=== PATIENT | female | born 1940 | race Caucasian/White ===

== ENCOUNTER 2016-04-15 05:30 | Emergency (ER) | payer OTHER ==
[~2016-04-15] VITALS: Ht 160 cm; Wt 52.2 kg
--- NOTE | ~2016-04-15 | EKG ---
[address] [address] [place] [address] ELECTROCARDIOGRAM REPORT Name: JAEL VALENZUELA Room #: REG Romero#: [id number] Admission: 04/15/16 Attend Phys: Discharge: Date of : 38 Report #: [id number] THIS REPORT FOR: //name// [facility] ED Test Date: 2016-04-15 Test Time: 05:35:05 Pat Name: JAEL VALENZUELA Department: Room: Gender: F Galley Cook: MARK : 1940 Requested By: Yamilex Cintron Order Number: [id number] MD: Marin Gallo Measurements Intervals [place] Rate: 65 P: 41 IA: 155 QRS: 40 QRSD: 100 T: 44 QT: 405 QTc: 422 Interpretive Statements Sinus rhythm Borderline low voltage, extremity leads No previous ECG available for comparison Electronically Signed On 04-15-2016 9:01:54 SPACE AND STORAGE CLERK by Marin Gallo [email or web address] <ELECTRONICALLY SIGNED> By: Marin Gallo MD, [facility] 04/15/16 0901 0535 0535 Marin Gallo MD, FACC /EPI
--- NOTE | ~2016-04-15 | EKG ---
[address] [address] [place] [address] ELECTROCARDIOGRAM REPORT Name: JAEL VALENZUELA Room #: REG Romero#: [id number] Admission: 04/15/16 Attend Phys: Discharge: Date of : 38 Report #: [id number] THIS REPORT FOR: //name// [facility] ED Test Date: 2016-04-15 Test Time: 07:41:20 Pat Name: JAEL VALENZUELA Department: Room: Gender: F [employer]: [employer] READ : 1940 Requested By: Yamilex Cintron Order Number: [id number] MD: Marin Gallo Measurements Intervals [place] Rate: 70 P: 35 FL: 146 QRS: 27 QRSD: 104 T: 40 QT: 390 QTc: 421 Interpretive Statements Sinus rhythm Borderline low voltage, extremity leads No previous ECG available for comparison Electronically Signed On 04-15-2016 9:05:28 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
[2016-04-15] MEDS ORDERED: LEVOTHYROXIN0.025 MG PO (05:40)
[2016-04-15] MEDS ORDERED: ACIDOPHILUS1 EAC5 PO (05:40)
[2016-04-15] MEDS ORDERED: ASPIRIN81 M2 PO (05:40)
[2016-04-15] MEDS ORDERED: DOK100 MG PO (05:40)
[2016-04-15] MEDS ORDERED: FLEET ENEMA118 ML RC (05:41)
[2016-04-15] MEDS ORDERED: THEREMS-M1 EACH PO (05:43)
[2016-04-15] MEDS ORDERED: ZOLOFT25 MG PO (05:43)
[2016-04-15] MEDS ORDERED: IMDUR 30 MG TAB30 M1 PO (05:43)
[2016-04-15] MEDS ORDERED: OMEGA-31000 M1 PO (05:44)
[2016-04-15] MEDS ORDERED: ASMANEX220 MC2 INH (05:44)
[2016-04-15] MEDS ORDERED: DONEPEZIL HCL 55 M1 PO (05:45)
[2016-04-15] MEDS ORDERED: NORTRIPTYLINE H10 M2 PO (05:45)
[2016-04-15] MEDS ORDERED: NORCO 5-325 TA1 EACH PO (05:46)
[2016-04-15] MEDS ORDERED: DULCOLAX5 MG PO (05:46)
[2016-04-15] MEDS ORDERED: NITROGLYCERIN0.4 MG SUBLING (05:48)
[2016-04-15] MEDS ORDERED: MSL20MG/ML SUBLING (05:48)
[2016-04-15] MEDS ORDERED: ZOFRAN ODT4 M1 PO (05:48)
[2016-04-15] MEDS ORDERED: MEDI PADS1 EACH TP (05:49)
[2016-04-15 06:28] LABS: ABSOLUTE NEUTROPHILS 3.3 thou/uL (1.4-8.2); BASOPHILS 1.3 % (0.0-2.0); EOSINOPHILS 3.3 % (0.0-3.0); HEMATOCRIT 42.1 % (37.0-47.0); HEMOGLOBIN 14.6 gm/dL (12.0-15.0); LYMPHOCYTES 23.6 % (24.0-44.0); MCHC 34.7 % (28.0-37.0); MCV 92.3 fL (80.0-100.0); MONOCYTES 10.5 % (1.0-8.0); PLATELET COUNT 250 thou/uL (150-400); POLYS 61.3 % (36.0-66.0); RBC 4.56 mil/uL (4.20-5.00); RDW 15.2 % (10.5-14.5); WBC 5.5 thou/uL (4.0-11.0)
[2016-04-15 06:30] LABS: MANUAL DIFF NO
[2016-04-15 06:31] LABS: ANION GAP 10 mmol/L (7-16); BUN 12 mg/dL (7-18); CALCIUM 9.6 mg/dL (8.5-10.1); CHLORIDE 100 mmol/L (98-107); CO2 27 mmol/L (21-32); CREATININE 0.8 mg/dL (0.6-1.3); GLUCOSE 84 mg/dL (70-99); POTASSIUM 3.8 mmol/L (3.5-5.1); SODIUM 137 mmol/L (136-145)
[2016-04-15 06:40] LABS: TROPONIN-I < 0.04 ng/mL (<0.04-0.07)
[2016-04-15] MEDS ORDERED: HYDROCODONE-AP1 EAC6 PO (08:33)
[2016-04-15 10:02] VITALS: BP 123/69
== END 2016-04-15 10:03 ==
LOC: ER 05:30
PROVIDERS: Emergency Medicine
DX: R07.89 Other chest pain (principal); M54.30 Sciatica, unspecified side; F03.90 Unspecified dementia, unspecified severity, without behavioral disturbance, psychotic disturbance, mood disturbance, and anxiety; Z88.1 Allergy status to other antibiotic agents; Z88.8 Allergy status to other drugs, medicaments and biological substances

== ENCOUNTER 2018-04-08 18:58 | Inpatient (IN) | payer OTHER ==
[~2018-04-08] VITALS: Ht 160 cm; Wt 56.2 kg
[~2018-04-08 18:58] MED LIST: ACIDOPHILUS1 EAC5 PO; ASMANEX220 MC2 INH; ASPIRIN81 M2 PO; DOK100 MG PO; DONEPEZIL HCL 55 M1 PO; DULCOLAX5 MG PO; FLEET ENEMA118 ML RC; HYDROCODONE-AP1 EAC6 PO; IMDUR 30 MG TAB30 M1 PO; LEVOTHYROXIN0.025 MG PO; MEDI PADS1 EACH TP; MSL20MG/ML SUBLING; NITROGLYCERIN0.4 MG SUBLING; NORCO 5-325 TA1 EACH PO; NORTRIPTYLINE H10 M2 PO; OMEGA-31000 M1 PO; THEREMS-M1 EACH PO; ZOFRAN ODT4 M1 PO; ZOLOFT25 MG PO
[2018-04-08 18:59] VITALS: BP 123/70; BP 140/82
[2018-04-08 20:34] LABS: ABSOLUTE NEUTROPHILS 8.2 thou/uL (1.4-8.2); BASOPHILS 0.5 % (0.0-2.0); EOSINOPHILS 1.2 % (0.0-3.0); HEMATOCRIT 30.6 % (37.0-47.0); HEMOGLOBIN 10.6 gm/dL (12.0-15.0); LYMPHOCYTES 8.7 % (24.0-44.0); MCH 32.6 pg (26.0-34.0); MCHC 34.7 g/dL (28.0-37.0); MCV 94.1 fL (80.0-100.0); MONOCYTES 7.1 % (1.0-8.0); PLATELET COUNT 193 thou/uL (150-400); POLYS 82.5 % (36.0-66.0); RBC 3.25 mil/uL (4.20-5.00); RDW 12.8 % (10.5-14.5); WBC 9.9 thou/uL (4.0-11.0)
[2018-04-08 20:46] LABS: PROTIME 10.7 Seconds (9.3-11.4)
[2018-04-08 20:47] LABS: ALBUMIN 2.7 g/dL (3.4-5.0); CALCIUM 6.5 mg/dL (8.5-10.1); CREATININE 0.6 mg/dL (0.6-1.0); TOTAL BILIRUBIN 0.2 mg/dL (<0.1-1.0); TOTAL PROTEIN 4.8 g/dL (6.4-8.2)
[2018-04-08 20:51] LABS: POTASSIUM 2.7 mmol/L (3.5-5.1)
[2018-04-08 22:17] VITALS: BP 135/81
[2018-04-08 22:21] VITALS: BP 137/118
[2018-04-09] MEDS ORDERED: TESSALON PERLE100 MG PO (02:44)
[2018-04-09] MEDS ORDERED: TYLENOL325 MG PO (02:44)
[2018-04-09] MEDS ORDERED: VITAMIN D5000 UNIT PO (02:46)
[2018-04-09] MEDS ORDERED: ZANTAC 150MG T150 MG PO (02:46)
[2018-04-09] MEDS ORDERED: ACIDOPHILUS1 EAC4 PO (02:48)
[2018-04-09] MEDS ORDERED: ANTACID ANTI-G355 ML PO (02:52)
[2018-04-09] MEDS ORDERED: WELLBUTRIN SR150 MG PO (02:54)
[2018-04-09] MEDS ORDERED: OMEPRAZOLE40 MG PO (02:59)
[2018-04-09] MEDS ORDERED: PEPTO-BISMOL1 TAB PO (03:00)
[2018-04-09] MEDS ORDERED: MIRALAX17 GM PO (03:05)
[2018-04-09] MEDS ORDERED: ROBAXIN 750 MG750 M1 PO (03:06)
[2018-04-09] MEDS ORDERED: MAGIC MOUTHWASH SWISH&SPIT (03:07)
[2018-04-09] MEDS ORDERED: FERROUS FUMARAT89 MG (03:10)
[2018-04-09] MEDS ORDERED: CYMBALTA60 MG PO (03:11)
[2018-04-09] MEDS ORDERED: CARDIZEM CD120 MG PO (03:15)
[2018-04-09 04:10] VITALS: BP 125/81
[2018-04-09 05:35] LABS: CREATININE 0.9 mg/dL (0.6-1.0)
[2018-04-09 05:42] LABS: CALCIUM 8.6 mg/dL (8.5-10.1); POTASSIUM 4.5 mmol/L (3.5-5.1)
[2018-04-09 07:14] VITALS: BP 122/70
--- NOTE | 2018-04-09 07:29 | NUR ---
TRANSPORTED VIA CART FROM ER. C/O SEVERE PAIN IN PELVIC AREA ESPECIALLY UNDER RIGHT BUTTOCK/HIP. EFFECTIVE RELIEF OF DISCOMFORT WITH PRN TYLENOL, FENTANYL. PATIENT VERY FORGETFUL BUT COMPLIANT WITH SAFETY INFORMATION PROVIDED. 16FRENCH PASCUAL CATHETER WITH 10CC BALLOON INSERTED, OVER 1000CC DARK KM URINE OBTAINED. AUSTIN ALANIS HEADLIGHT ASSEMBLER AWARE OF ADMIT, ORDERS RECEIVED. I SPOKE TO VIC CADET NURSE, OBTAINED COPIES OF CURRENT HOME MEDICATIONS WHICH WERE RESUMED.
[2018-04-09 14:07] VITALS: BP 98/55
--- NOTE | 2018-04-09 16:51 | NUR ---
ASSUMED PT CARE AT 0645AM/ PT IS A/OX4 BUT FORGETFUL. SHE ASKS THE SAME QUESTIONS REPEATEDLY. GOT UP TO THE CHAIR TODAY WITH PT. ONLY REQUIRED MINIMAL ASSISTANCE. SHE IS TO BE WEIGHTBERING TOLERATED. WILL CONTINUE TO [facility] PT
[2018-04-09 19:45] VITALS: BP 121/79
[2018-04-10 04:47] LABS: HEMATOCRIT 36.1 % (37.0-47.0); HEMOGLOBIN 12.4 gm/dL (12.0-15.0); MCH 32.5 pg (26.0-34.0); MCHC 34.3 g/dL (28.0-37.0); MCV 94.8 fL (80.0-100.0); RBC 3.81 mil/uL (4.20-5.00); RDW 13.3 % (10.5-14.5); WBC 7.2 thou/uL (4.0-11.0)
[2018-04-10 04:50] VITALS: BP 105/65
[2018-04-10 04:56] LABS: CALCIUM 8.3 mg/dL (8.5-10.1); CREATININE 0.8 mg/dL (0.6-1.0); POTASSIUM 3.9 mmol/L (3.5-5.1)
[2018-04-10 04:58] LABS: PROTIME 10.3 Seconds (9.3-11.4)
--- NOTE | 2018-04-10 05:49 | NUR ---
No Bm this shift. receiving scheduled Miralax TID which is her home dose. history of bowel obstruction. unsure of last BM due to forgetfulness, dementia. abd soft, bowel sounds WNL. given PO Tylenol for pain in addition to PRN IV Fentanyl, able to rest better/sleep for several hours. also given PRN muscle spasm med which assisted with pain. Orr catheter for urine retention and for immobilization due to severe pelvic fracture pain is draining afia urine. compliant with safety instructions. calm, pleasant, conversational.
[2018-04-10 08:00] VITALS: BP 113/64
--- NOTE | 2018-04-10 10:27 | NUR ---
PT ADMITTED RELATED TO R DISPLACED SUP RAMUS FX AND NONDISP INFERIOR PUB RAMUS FX. CM REVIEWED CHART AND SPOKE WITH CARE TEAM. CM MET WITH PT AT BEDSIDE THIS DAY. PT IS A&O X4. CM ROLE INTRODUCED PT INDICATED SHE LIVES AT [facility]. 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 PT INDICATE DSHE [facility] AND SHE WOULD BE RECEPTIVE TO POST ACUTE CARE STAY IF RECOMMENDED. CM TO FOLLOW INDICATED WITH DC PLANNING.
--- NOTE | 2018-04-10 13:00 | NUR ---
DP FAXED REFERRAL TO [facility], AND PUT NOTE"PATIENT MAY BE READY FOR ADMISSION TODAY' DP ALSO TEXTED CHELSEY AND MATY IN ADMISSIONS FROM [facility], RECEIVED FAX CONFIRMATION ALSO.
[2018-04-10 15:00] VITALS: BP 111/63
--- NOTE | 2018-04-10 17:03 | NUR ---
AWAITING OT EVAL TO SENT TO [facility] TO REQUEST INSURANCE AUTH FOR ADMSSION.
--- NOTE | 2018-04-10 17:16 | NUR ---
ASSSUMED CARE AT 0700. AXOX4. PAIN CONTROLLED WITH NEW MED TRAMADOL. GOT UP WITH PT JUAN LUIS. PER ANKUR MCDONALD WILL REMAIN UNTIL FURTHER ORDER. UP ON CHAIR NOW. NO S/S ACUTE DISTRESS NOTED OR REPORTED AT THIS TIME. WILL CONT TO MONITOR FOR ANY CHANGES IN CONDITION.
[2018-04-10 18:57] VITALS: BP 136/82
--- NOTE | 2018-04-11 02:12 | NUR ---
PATIENT CARES WERE ASSUMED AT SHIFT CHANGE. PATIENT WAS ASSESSED AND MEDS WERE PAASSED. PATIENT REQUESTED A SNACK AND WAS NPO AFTER MIDNIGHT. CONSENTS ARE SIGNED AND ON THE CHART. TEACHING WAS DONE ON DIET AND EXCERCIZE. PATIENT REPORTED SHE IS ON DISABILITY DUE TO RAYNUADS. HOURLY ROUNDING WAS DONE. THE BED IS IN A LOWLOCKED POSITION.
[2018-04-11 03:30] VITALS: BP 120/77
[2018-04-11 08:16] VITALS: BP 117/67
[2018-04-11 09:46] VITALS: BP 117/67
--- NOTE | 2018-04-11 11:13 | NUR ---
DP FAXED TODAY'S OT AND MED UPDATES TO [facility]. DP NOTIFIED DEENA.
[2018-04-11] MEDS ORDERED: TRAMADOL 50 MG50 MG PO (12:46)
--- NOTE | 2018-04-11 15:12 | NUR ---
PT TO DISCHARGE TO [facility] SKILLED THIS DAY. PT IS TO BE TRANSPORTED VIA [facility] AT 1530. CHART COPY ORDERED AND ORDERS FAXED. DC ROGUER CALLED AND NOTIFIED PT'S NIECE. NO OTHER CM INTERVENTION INDICATED AT THIS TIME. CASE CLOSED.
--- NOTE | 2018-04-11 15:27 | NUR ---
Pt stable, alert and oriented x 4. OT and PT worked with pt and was still on maximum asstists. pain medicatiom given. FC patent and draining clear light yellow urine. IV removed and FC as well. Pt dc to [facility], awaiting transport.
== END 2018-04-11 16:48 | DRG 535 ==
LOC: ER 18:58 → 4W 21:22 → EROBS 21:22 → 4W 22:20
PROVIDERS: Nurse Practitioner Family; Physician Assistant; ADMIT Hospitalist
DX: S32.591A Other specified fracture of right pubis, initial encounter for closed fracture (principal); E43 Unspecified severe protein-calorie malnutrition; E87.6 Hypokalemia; X58.XXXA Exposure to other specified factors, initial encounter; W00.0XXA Fall on same level due to ice and snow, initial encounter; I10 Essential (primary) hypertension; I48.0 Paroxysmal atrial fibrillation; M62.84 Sarcopenia; D50.9 Iron deficiency anemia, unspecified; K21.9 Gastro-esophageal reflux disease without esophagitis; E83.42 Hypomagnesemia; E03.9 Hypothyroidism, unspecified; K58.9 Irritable bowel syndrome, unspecified; F03.90 Unspecified dementia, unspecified severity, without behavioral disturbance, psychotic disturbance, mood disturbance, and anxiety; Z79.1 Long term (current) use of non-steroidal anti-inflammatories (NSAID); Z79.899 Other long term (current) drug therapy; Z79.82 Long term (current) use of aspirin; Z88.1 Allergy status to other antibiotic agents; Y93.89 Activity, other specified; Y99.8 Other external cause status; Y92.098 Other place in other non-institutional residence as the place of occurrence of the external cause; Z88.8 Allergy status to other drugs, medicaments and biological substances; Z68.22 Body mass index [BMI] 22.0-22.9, adult; Z95.818 Presence of other cardiac implants and grafts
CPT/HCPCS: 10045